=== PATIENT | male | born 1980 | race Two or more races ===

== ENCOUNTER 2025-04-26 06:30 | Day surgery (SDC) | payer MEDICAID, SELFPAY ==
[2025-04-25 11:58] VITALS: BMI 28.5
[2025-04-26] VITALS (10 sets, daily range): BP systolic 106–120; BP diastolic 73–83; PULSE 62–85; RESP 10–18; TEMP 36.4–36.6; O2SAT 68–100; BMI 27.6
[2025-04-26] MEDS: SODIUM CHLORIDE 0.9% 500 ML 500 ML 20 ML IV (07:35)
[2025-04-26] MEDS: fentaNYL CIT INJ 50 mCg/ML AMP 2ML (ASD USE ONLY) IVP (07:41)
[2025-04-26] MEDS: MIDAZOLAM INJ 1 MG/ML VIAL 2 ML (ASD USE ONLY) 2 MG IVP (07:45)
== END 2025-04-26 08:25 | disposition home or self-care (01) ==
PROVIDERS: PCP Family Medicine; Referring Provider Surgery; Visit Provider Surgery
PROC: 0DBE8ZX Excision of Large Intestine, Via Natural or Artificial Opening Endoscopic, Diagnostic (ICD-10-PCS; CPT 45380; principal; 2025-04-26 08:00)
DX: Z12.11 Encounter for screening for malignant neoplasm of colon (principal); K64.1 Second degree hemorrhoids; K57.30 Diverticulosis of large intestine without perforation or abscess without bleeding; F17.200 Nicotine dependence, unspecified, uncomplicated; Z12.12 Encounter for screening for malignant neoplasm of rectum
CPT/HCPCS: 45378; A4649; J1200; J2250; J3010; J7999